=== PATIENT | female | born 1990 | race Two or more races ===

== ENCOUNTER → 2021-05-30 | Outpatient (CLI) | payer SELFPAY ==
[~2021-05-30] MED LIST: DOCU-109 PO; FERR325T14 PO; IBUP-1060 PO; OXYC1TAB15 PO
== END ==
LOC: LAB 11:26
PROVIDERS: ATTEND Obstetrics & Gynecology
DX: Z01.812 Encounter for preprocedural laboratory examination (principal); Z20.822 Contact with and (suspected) exposure to COVID-19
CPT/HCPCS: U0003; U0005

== ENCOUNTER 2021-06-02 05:53 | Inpatient (IN) | payer SELFPAY ==
[2021-06-02] VITALS (8 sets, daily range): BP systolic 117–153; BP diastolic 67–96
[~2021-06-02] VITALS: Ht 157.5 cm; Wt 88.0 kg
[2021-06-02] MEDS ORDERED: ceFAZolin 2GM PREMIX 2 GM/50 ML BAG IV ONE (06:00)
[2021-06-02] MEDS ORDERED: IV NORMAL SALINE 1000ML BAG 1,000 ML IV SCH (06:00)
[2021-06-02] MEDS ORDERED: CITRIC ACID/SODIUM CITRATE 30 ML SOLUTION. PO ONE (06:00)
[2021-06-02] MEDS: IV RINGERS,LACTATED 1000ML 1,000 ML IV SCH ×2 (06:54→07:54)
[2021-06-02 07:19] LABS: HEMATOCRIT 33.9 % (36.0-47.0); HEMOGLOBIN 11.3 g/dL (12.0-15.5); RED BLOOD COUNT 3.68 x10^6/uL (3.50-5.40); RED CELL DISTRIBUTION WIDTH 15.1 % (11.5-14.5); WHITE BLOOD COUNT 7.2 x10^3/uL (4.0-11.0)
[2021-06-02] MEDS ORDERED: ONDANSETRON PF 4 MG/2 ML VIAL. ONE (07:21)
[2021-06-02] MEDS ORDERED: KETOROLAC 30 MG/ML VIAL. ONE (07:22)
[2021-06-02] MEDS ORDERED: fentaNYL PF VIAL 100 MCG/2 ML VIAL ONE (07:22)
[2021-06-02] MEDS ORDERED: OXYTOCIN 10 UNIT/ML VIAL. ONE (07:22)
[2021-06-02] MEDS ORDERED: MORPHINE PF 10 MG/10 ML AMPUL. ONE (07:23)
--- NOTE | 2021-06-02 07:54 | PDOC1 ---
COMPLIANCE REVIEW SPECIALIST H&P Date of Admission: Date of Admission: Jun 02, 2021 at 05:53 History of Present Illness: EDC: 06/08/21 LMP: 09/16/20 31y @ 39.1 by 24wk u/s presents for scheduled C/S. The pt has neg Hep B testing in the past, but her most recent draw required a confirmatory test which ultimately returned neg. The pt has been taking Fe BID for her anemia. The pt had preeclampsia with all 3 of her previous pregnancies. She was only delivered due to preeclampsia with the first. She is sure she would like a BTL. PMH: Anemia PSH: C/S x 3 Meds: PNV, Fe, ASA All: NKDA OBHx: TC/S x 3 SH: no tob, no EtOH FH: asthma, uterine cancer Medications: Meds: Current Medications Medications (Trade) Dose Ordered Sig/Bridgette Route PRN Reason Start Time Stop Time Status Last Admin Dose Admin Ringer's Solution 1,000 ml @ 125 mls/hr Q8H IV 06/02/21 06:00 06/02/21 06:54 Allergies: Coded Allergies: No Known Allergies (Verified Allergy, Unknown, 06/02/21) Physical Exam: PE: GENERAL: No apparent distress. Alert and oriented. HEENT: Head normocephalic, atraumatic. NECK: Supple LUNGS: Clear to auscultation. HEART: RRR, S1, S2 present, pulses intact ABDOMEN: Soft, positive bowel sounds. EXTREMITIES: No cyanosis or edema. NEUROLOGIC: Normal speech, normal tone PSYCHIATRIC: Normal affect, normal mood. SKIN: No ulceration. FHT: 120's +acels/no decels/mLTV Tooc: quiet Labs: Laboratory Tests Test 06/02/21 06:45 White Blood Count 7.2 x10^3/uL (4.0-11.0) Red Blood Count 3.68 x10^6/uL (3.50-5.40) Hemoglobin 11.3 g/dL (12.0-15.5) L Hematocrit 33.9 % (36.0-47.0) L Mean Corpuscular Volume 92 fL (79-100) Mean Corpuscular Hemoglobin 31 pg (25-35) Mean Corpuscular Hemoglobin Concent 33 g/dL (31-37) Red Cell Distribution Width 15.1 % (11.5-14.5) H Platelet Count 200 x10^3/uL (140-400) Laboratory Tests 06/02/21 06:45 Laboratory Tests 06/02/21 06:45 Assessment & Plan: A/P 31y @ 39.1 by 24wk u/s 1.) Prev C/S x 3 2.) Anemia - on Fe BID 3.) H/o preeclampsia - initial BP mild, the remainder were nml today, no s/s of preeclampsia 4.) DPS - SHANTA consent signed 03/24/21 5.) TDAP given 04/09/21 6.) HBsAg Confirmation - Negative 7.) Fetus cat I FHT 8.) GBS neg BINH ANGUIANO MD Jun 02, 2021 07:54
[2021-06-02 08:20] LABS: BILIRUBIN,URINE NEGATIVE (NEG); CLARITY,URINE CLEAR; COLOR,URINE YELLOW; NITRITE,URINE NEGATIVE (NEG); PH,URINE 6.5 (<5.0-8.0); PROTEIN,URINE NEGATIVE (NEG-TRACE); UROBILINOGEN,URINE 0.2 mg/dL (0.2 mg/dL)
[2021-06-02 08:30] LABS: BACTERIA,URINE 0 /HPF (0-FEW); RBC,URINE 0 /HPF (0-2); WBC,URINE 0 /HPF (0-4)
[2021-06-02] MEDS ORDERED: PHENYLEPHRINE in 0.9% NACL PF 1 MG/10 ML SYRINGE. IV ONE (09:17)
[2021-06-02] MEDS ORDERED: diphenhydrAMINE ORAL ELIXIR 12.5 MG/5 ML ML PO PRN (10:15)
[2021-06-02] MEDS ORDERED: 0.9 % SODIUM CHLORIDE 10 ML DISP.SYRIN. IV PRN (10:15)
[2021-06-02] MEDS ORDERED: KETOROLAC 30 MG/ML VIAL. IVP PRN (10:15)
[2021-06-02] MEDS ORDERED: TDaP (Adacel) per PROTOCOL. MC PRN (10:15)
[2021-06-02] MEDS ORDERED: BENZOCAINE 20% TOPICAL AEROSOL SPRAY 57GM CAN. TP PRN (10:15)
[2021-06-02] MEDS ORDERED: ACETAMINOPHEN 325 MG TABLET. PO PRN (10:15)
[2021-06-02] MEDS ORDERED: MMR per PROTOCOL. MC PRN (10:15)
[2021-06-02] MEDS ORDERED: OXYTOCIN 30 UNIT/500 ML PREMIX 500 ML IV PRN (10:15)
--- NOTE | 2021-06-02 11:53 | PDOC4 ---
OPERATIVE NOTE: PreOp Dx: 1.) IUP @ 39.1 by 24wk u/s, 2.) Prev C/S x 3, 3.) Anemia, 4.) H/o preeclampsia, 5.) DPS, 6.) GBS neg PostOp Dx: same Procedure: RLTCS/BTL Surgeon: Mal Anguiano Anesthesia: Spinal EBL: 900 cc Fluids: 1800 cc UOP: 400 cc Complications: None Findings: viable female delivered at 0849. Wt 7 lb 11 oz. APGARS 8/9. Serosal adhesions to the anterior uterus and bladder flap. Nml tubes and ovaries Path: Cord blood, bilateral tubal segments, placenta BINH ANGUIANO MD Jun 02, 2021 11:53
--- NOTE | 2021-06-02 12:40 | OP ---
DATE OF SURGERY: 06/02/2021 PREOPERATIVE DIAGNOSES: 1. Intrauterine at 39 weeks and 1 day by 24-week ultrasound. 2. Previous x 3. 3. Anemia. 4. History of preeclampsia. 5. Desires permanent sterilization. 6. GBS negative. POSTOPERATIVE DIAGNOSES: 1. Intrauterine at 39 weeks and 1 day by 24-week ultrasound. 2. Previous x 3. 3. Anemia. 4. History of preeclampsia. 5. Desires permanent sterilization. 6. GBS negative. PROCEDURE: Repeat low transverse with bilateral tubal ligation. SURGEON: Salo June MD ANESTHESIA: Spinal. ESTIMATED BLOOD LOSS: 900 mL. FLUIDS: 1800 mL URINE OUTPUT: 400 mL COMPLICATIONS: None. FINDINGS: Viable female infant delivered at 0849, weighing 7 pounds 11 ounces with Apgars of 8 and 9. Serosal adhesions noted on the anterior of the uterus and above the bladder flap. Normal tubes and ovaries. PATHOLOGY: Cord blood, bilateral tubal segments, and placenta. DESCRIPTION OF PROCEDURE: The patient was taken to the operating room where spinal anesthesia was placed without difficulty. The patient was prepped and draped in a normal sterile fashion. A Pfannenstiel skin incision was made through her previous incision and carried down to the underlying layer of fascia. The fascia was then nicked in the midline. The fascial incision was then extended laterally with Love scissors. With the extension of the fascia, it was noted that there was very little rectus muscle on the right side. At that point, the superior aspect of the fascial incision was then grasped with Star clamps, elevated and the underlying rectus muscle was dissected off with the scalpel. Due to the lack of rectus muscle on the right side, taking down the fascia, also revealed the peritoneum, which was entered sharply at that point once the fascia was sufficiently , superiorly. Attention was then turned to the inferior aspect of the fascial incision which was grasped with Star clamps, elevated and the underlying rectus muscle was dissected off with Love scissors. At that point, the peritoneal opening that had been created was explored. There was a serosal adhesion of the anterior abdominal wall to the left side of the anterior of the uterus. This serosal adhesion was then isolated digitally and the Bovie was used to separate adhesion. Once the uterus was without adhesions on the anterior, peritoneal incision was then extended with traction and countertraction with good visualization of the bladder. At that point, the Jaxon ring was then placed in the abdomen to better visualize the lower uterine segment. There was some serosal adhesions over the bladder flap, more significantly on the right. These were able to be taken down sharply with Metzenbaum scissors. Metzenbaum scissors were then used to create a bladder flap. At that point, the lower uterine segment was then incised in transverse fashion with the scalpel. The hysterotomy was extended with traction and countertraction. At that point, the 's head was flexed, but unable to be brought through the hysterotomy due to the low nature of her previous skin incision. At that point, a vacuum was placed on the infant's head to better create the angle. With fundal pressure, the 's head was able to be flexed and brought to the hysterotomy. The rest of the was delivered atraumatically. The cord was clamped and cut and the was handed over to the waiting sdv pilot/navigator/dds operator. Placenta was then removed manually. Uterus was then cleared of all clots and debris. The uterine incision was then repaired with #1 chromic in a running locked fashion. Second layer of same suture was used to imbricate. Good hemostasis was noted. At that point, the uterus was exteriorized, so that a tubal could be performed. Left tube was then identified and followed out to the fimbria. The tube was grasped with a [place] clamp. An opening was created in the avascular portion of the mesosalpinx. Two free ties of 0 gut were then used to ligate the tube. This 2 cm segment of the tube was then excised and sent to pathology. The edges were made hemostatic with the Bovie. Attention was then turned to the right tube, which was followed out to the fimbria. Tori clamp was used to grasp the tube. At that point, an opening was created in the avascular space of the mesosalpinx just below the tube. Two free ties of 0 plain gut were used to ligate the tube. This 2 cm segment of tube was sent to pathology. The Bovie again was used to make the edges hemostatic. The location where the serosal adhesion had been removed from the uterus previously, was bleeding. This was closed in a running locked manner with a 2-0 chromic. Good hemostasis was noted. At that point, the uterus was returned to the abdomen. The gutters were copiously irrigated and cleared of all clots and debris. Reexamination of the tubal site revealed good hemostasis. Jaxon ring was then removed. The peritoneum was then reapproximated with 2-0 Vicryl in a running fashion. The muscle was reapproximated with 2-0 Vicryl in a running fashion. The fascia was then closed with 0 Vicryl in a running fashion. The skin was closed with 3-0 Monocryl in a subcuticular manner. The patient tolerated the procedure well. Sponges, laps and needles were correct x 3. Two grams of Ancef were given prior to the procedure. The patient tolerated the procedure well and was taken to the recovery room in stable condition. ROSALINDA DR: Theresa TID: [id number] MTDD
--- NOTE | 2021-06-02 14:23 | NUR ---
Pt. c/o being dizzy, having a headache, and having increased amount of N&V. Dr. June paged and returns call. New orders received.
[2021-06-02] MEDS ORDERED: ONDANSETRON PF 4 MG/2 ML VIAL. IVP PRN (14:30)
[2021-06-02] MEDS: FERROUS SULFATE 325 MG TABLET. PO SCH (20:38)
[2021-06-03 01:17] VITALS: BP 114/61
[2021-06-03 06:35] LABS: HEMATOCRIT 24.7 % (36.0-47.0); HEMOGLOBIN 8.3 g/dL (12.0-15.5); RED BLOOD COUNT 2.66 x10^6/uL (3.50-5.40); RED CELL DISTRIBUTION WIDTH 14.8 % (11.5-14.5); WHITE BLOOD COUNT 9.6 x10^3/uL (4.0-11.0)
[2021-06-03 06:37] VITALS: BP 105/55
[2021-06-03] MEDS: IBUPROFEN 400 MG TABLET. PO PRN ×2 (06:48→15:08)
[2021-06-03] MEDS ORDERED: MULTIVITAMIN with MINERAL TABLET. PO SCH (09:00)
[2021-06-03] MEDS: PRENATAL MULTIVITAMIN TABLET. PO SCH (09:32)
[2021-06-03] MEDS: FERROUS SULFATE 325 MG TABLET. PO SCH ×2 (09:32→18:02)
[2021-06-03] MEDS: DOCUSATE SODIUM 100 MG CAPSULE. PO PRN ×2 (09:32→18:02)
[2021-06-03] MEDS: oxyCODONE/APAP 5/325 1 TAB TABLET PO PRN ×3 (09:33→21:44)
--- NOTE | 2021-06-03 09:33 | PDOC ---
BI CONSULTANT PROGRESS NOTE Date of Service: DATE: 06/03/21 TIME: 09:24 Subjective: Doing well. Abreu removed this AM - has not ambulated to restroom yet. Reports mild incisional discomfort - well managed with PO meds. Reports mild ENCARNACION this AM - increased intensity with upright position. Rates pain 5/10 - reports much improved from yesterday. Denies visual disturbances. Tolerates regular diet. without difficulty. Otherwise denies complaints. Objective: Objective: Dressing C/D/I. Scant lochia. Negative Homans. Bilateral SCDs in place. Bonding appropriately with infant. Vital Signs: Vital Signs Date Time Temp Pulse Resp B/P (MAP) Pulse Ox O2 Delivery O2 Flow Rate FiO2 06/02/21 10:23 98.6 82 20 133/96 (108) 98.6 06/02/21 13:10 Room Air 06/02/21 20:49 93 Vital Signs Date Time Temp Pulse Resp B/P (MAP) Pulse Ox O2 Delivery O2 Flow Rate FiO2 06/03/21 06:37 101.1 81 18 105/55 (72) 95 Room Air 101.1 Labs: Laboratory Tests Test 06/03/21 06:15 White Blood Count 9.6 x10^3/uL (4.0-11.0) Red Blood Count 2.66 x10^6/uL (3.50-5.40) L Hemoglobin 8.3 g/dL (12.0-15.5) L Hematocrit 24.7 % (36.0-47.0) L Mean Corpuscular Volume 93 fL (79-100) Mean Corpuscular Hemoglobin 31 pg (25-35) Mean Corpuscular Hemoglobin Concent 34 g/dL (31-37) Red Cell Distribution Width 14.8 % (11.5-14.5) H Platelet Count 164 x10^3/uL (140-400) Laboratory Tests 06/03/21 06:15 Laboratory Tests 06/03/21 06:15 Physical Exam: GENERAL: No apparent distress. Alert and oriented. HEENT: Head normocephalic, atraumatic. NECK: Supple LUNGS: Clear to auscultation. HEART: RRR, S1, S2 present, pulses intact ABDOMEN: Soft, positive bowel sounds. EXTREMITIES: No cyanosis or edema. 2+ DTRs. NEUROLOGIC: Normal speech, normal tone PSYCHIATRIC: Normal affect, normal mood. SKIN: No ulceration. FUNDUS: Firm @ U BREASTS: Filling Assessment & Plan: A/P 31y @ 39.1 by 24wk u/s 1.) 31yo 2.) POD#1 2.) Anemia - on Fe BID 3.) H/o preeclampsia - initial BP mild, the remainder were nml today, no s/s of preeclampsia 4.) DPS - SHANTA consent signed 03/24/21 5.) TDAP given 04/09/21 6.) HBsAg Confirmation - Negative Recommend anesthesia consult for suspected spinal ENCARNACION - pt. declines at present as symptoms have much improved since yesterday. Encouraged to call if symptoms exacerbated with increased activity/upright positioning today. Pt. v/u of all. Caffeine and PO pain meds in the interim. Continue FeSO4 BID. JACKELYN RITCHIE CNM Jun 03, 2021 09:33
[2021-06-03 11:55] VITALS: BP 115/56
[2021-06-03 18:00] VITALS: BP 118/59
--- NOTE | 2021-06-03 18:07 | PATHOLOGY ---
[facility] Accession Number: [id number] . 01 Material submitted: . fallopian tube - FALLOPIAN TUBES. Modifiers: bilateral . 01 Clinical history: . RPT C/S WITH BILATERAL TUBAL . 02 Diagnosis: Fallopian tubes, "right and left" (sterilization): - Completely transected segments of fallopian tube, with focal decidualization of tubal stroma and areas of chronic inflammation. - [place]ard rest formation. - Benign paratubal cyst. . (MLK:mml; 06/03/2021) QLM 06/03/2021 1734 Local . 02 Electronically signed: . Julius Lepe MD, Pathologist NPI- [id number] . 01 Gross description: . Fixative: Formalin Labeled: Fallopian tube R + L Fallopian tube #1 Measurements: 2.2 cm in length by 1.0 cm in diameter Fimbriated: No External surface: Purple-red, smooth Cut Surface: Pinpoint to patent Fallopian tube #2 Measurements: 2.2 cm in length by 1.1 cm in diameter Fimbriated: No External surface: Purple-red, smooth Cut Surface: Pinpoint to patent . A1 Differential Repairer fallopian tube #1 A2 Differential Repairer fallopian tube #2 ([facility]; 06/02/2021) NRI/NRI 06/02/2021 1623 Local . 02 Pathologist provided ICD-10: N83.8, N70.13 . 02 CPT . 709174 Specimen Comment: A courtesy copy of this report has been sent to [phone] Specimen Comment: Report sent to Performed at: [address], [place], [place] [id number] MD Daniel Cruz MD Phone: [phone] Performed at: 02 [facility] [address] [place], [place] [id number] MD Jesse Martínez MD Phone: [phone]
[2021-06-03 21:45] VITALS: BP 123/63
[2021-06-04] MEDS: oxyCODONE/APAP 5/325 1 TAB TABLET PO PRN ×2 (02:17→13:56)
[2021-06-04] MEDS: IBUPROFEN 400 MG TABLET. PO PRN ×2 (02:19→09:41)
[2021-06-04 02:20] VITALS: BP 120/70
[2021-06-04 06:20] VITALS: BP 129/62
[2021-06-04 08:15] VITALS: BP 130/60
[2021-06-04] MEDS ORDERED: FLU VACC QUAD 21-22 (6MOS+) PF 0.5 ML SYRINGE. VAX IM ONE (09:00)
--- NOTE | 2021-06-04 09:35 | PDOC ---
MOBILE DEVELOPMENT MANAGER PROGRESS NOTE Date of Service: DATE: 06/04/21 TIME: 09:35 Subjective: Pt had some dizziness last night and this am. She states that she hasn't had any since. She reports being active and ambulating without symptoms. She has had some HAs, but they are mild. Pt with good pain control. Shamar PO. Voiding. Minimal lochia. Denies f/c Objective: Vital Signs: Vital Signs Date Time Temp Pulse Resp B/P (MAP) Pulse Ox O2 Delivery O2 Flow Rate FiO2 06/03/21 09:30 98.4 98.4 06/03/21 09:33 Room Air 06/03/21 11:55 82 16 115/56 (75) 95 Vital Signs Date Time Temp Pulse Resp B/P (MAP) Pulse Ox O2 Delivery O2 Flow Rate FiO2 06/04/21 06:20 98.1 72 16 129/62 (84) 94 Room Air 98.1 Physical Exam: GENERAL: No apparent distress. Alert and oriented. HEENT: Head normocephalic, atraumatic. NECK: Supple LUNGS: Clear to auscultation. HEART: RRR, S1, S2 present, pulses intact ABDOMEN: Soft, positive bowel sounds. EXTREMITIES: No cyanosis or edema. NEUROLOGIC: Normal speech, normal tone PSYCHIATRIC: Normal affect, normal mood. SKIN: No ulceration. FFNT below umb No C/C/E Inc: C/D/I Assessment & Plan: A/P 31y POD #2 s/p RLTCS/BTL 1.) PO doing well 2.) Anemia Hgb 11.3 -> 8.3, on Fe BID 3.) H/o preeclampsia BPs nml to mild, nml over last 24hrs, no s/s of preeclampsia 4.) Fever Tm 101.1 (11 at 0637), no local signs, AF since, nml WBC postop 5.) Dizziness - resolved since this am 6.) TDAP given 04/09/21 7.) Cont PO care BINH ANGUIANO MD Jun 04, 2021 09:35
[2021-06-04] MEDS: FERROUS SULFATE 325 MG TABLET. PO SCH (09:40)
[2021-06-04] MEDS: PRENATAL MULTIVITAMIN TABLET. PO SCH (09:40)
[2021-06-04] MEDS: DOCUSATE SODIUM 100 MG CAPSULE. PO PRN (09:41)
[2021-06-04] MEDS ORDERED: IBUP-1060 PO (10:39)
[2021-06-04] MEDS ORDERED: OXYC1TAB15 PO (10:39)
[2021-06-04] MEDS ORDERED: FERR325T14 PO (10:39)
[2021-06-04] MEDS ORDERED: DOCU-109 PO (10:39)
[2021-06-04 16:11] VITALS: BP 119/67
--- NOTE | 2021-06-04 16:50 | NUR ---
1600 Discahrge instructions given to patient and SO patient voiced understanding, questions answered. certificate completed. Patient denies pain at that time, rates pain a 0 on numeric pain scale. VS stable with no c/o dizziness. 1650 patient discharge via w/c accompanied by staff and SO to vehicle with belonging in hand.
--- NOTE | 2021-06-04 20:20 | DS ---
DATE OF DISCHARGE: 06/04/2021 ADMISSION DIAGNOSES: 1. Intrauterine at 39 weeks and 1 day by 24-week ultrasound. 2. Previous x 3. 3. Anemia. 4. History of preeclampsia. 5. Desires permanent sterilization. 6. Status post Tdap. 7. Group B Streptococcus negative. DISCHARGE DIAGNOSES: 1. Intrauterine at 39 weeks and 1 day by 24-week ultrasound. 2. Previous x 3. 3. Anemia. 4. History of preeclampsia. 5. Desires permanent sterilization. 6. Status post Tdap. 7. Group B Streptococcus negative. PROCEDURE: Repeat low transverse with bilateral tubal ligation. BRIEF HOSPITAL COURSE: The patient is a 31-year-old 4, para 3-0-0-3, who presented to Labor and Delivery at 39 weeks and 1 day by 24-week ultrasound for scheduled . The patient had a relatively uncomplicated . Besides having anemia, which she was started on iron for, the patient also had a history of preeclampsia, but had no elevated blood pressures throughout her course. The patient underwent a repeat and tubal ligation on 06/02/2021. See operative note for full detail. During the operation, the patient did report having a headache and postoperatively, the patient felt like there was some spinning. It was felt that the patient either had a spinal headache or dizziness related to anemia. The following day, her hemoglobin went from 11.3 to 8.3. Over the course of her postoperative course, her dizziness improved, so leaning more towards a spinal headache types an area. Of note also during the course of the hospitalization, the patient's blood pressures were normal to mild. Over postop day #2, her blood pressures were all normal. Also of note on the morning of day #1, the patient spiked a fever. The patient had no localized symptoms and a normal white count. The following day, the patient remained afebrile without any signs or symptoms of an infection. By postop day #2, the patient was meeting all discharge criteria and was subsequently discharged home. DISCHARGE INSTRUCTIONS: The patient was told not to lift anything greater than 20 pounds, have pelvic rest for 6 weeks, not to drive on narcotics. CALL IF: The patient was to call if she had fevers, chills, nausea, vomiting, abdominal pain or any additional questions or concerns. FOLLOWUP APPOINTMENT: The patient was to follow up on 06/12/2021 at 1:30 p.m. for an incision check. DISCHARGE MEDICATIONS: The patient was given a prescription for Percocet 5, 15 pills; Motrin 800 mg, 30 pills; ferrous sulfate 325 mg, 30 pills; and Colace 100 mg, [address]: Theresa TID: [id number] [facility]
== END 2021-06-04 16:55 | disposition home or self-care (01) | DRG 784 ==
LOC: 3 SO LND 05:53 → EDUNIT# 08:00 → 3 SO LND 12:58
PROVIDERS: ADMIT Obstetrics & Gynecology; ATTEND Obstetrics & Gynecology
PROC: 10D00Z1 Extraction of Products of Conception, Low, Open Approach (ICD-10-PCS; principal; 2021-06-02)
PROC: 0UB70ZZ Excision of Bilateral Fallopian Tubes, Open Approach (ICD-10-PCS; 2021-06-02)
DX: O34.211 Maternal care for low transverse scar from previous cesarean delivery (principal); O86.4 Pyrexia of unknown origin following delivery; O99.02 Anemia complicating childbirth; Z30.2 Encounter for sterilization; D64.9 Anemia, unspecified; Z37.0 Single live birth; Z3A.39 39 weeks gestation of pregnancy; Z82.5 Family history of asthma and other chronic lower respiratory diseases; Z80.59 Family history of malignant neoplasm of other urinary tract organ
CPT/HCPCS: 36415; 81001; 85027; 86592; 86850; 86900; 86901; 88304; 90471; 90686; C1755; G0378; J0690; J1885; J2274; J2370; J2405; J2590; J3010; J7120